=== PATIENT | male | born 1980 | race Two or more races ===

== ENCOUNTER 2017-03-16 14:22 | Emergency (ER) | payer OTHER ==
[~2017-03-16] VITALS: Ht 165.1 cm; Wt 83.9 kg
--- NOTE | 2017-03-16 14:24 | NUR ---
PT TO ER BED 11. POSTERIOR HEAD LAC POST FALL. PT DENIES KO. NO N/V R HAND ABRASION. AWAITNG MD HAMMOND.
[2017-03-16] MEDS ORDERED: LIDOCAINE 2%-EPI 1:100,000 30 ML VIAL IJ STA (14:31)
--- NOTE | 2017-03-16 14:33 | NUR ---
DR TALAVERA AT BEDSIDE FOR EVAL.
--- NOTE | 2017-03-16 14:58 | NUR ---
PT TO RADIOLOGY FOR HEAD CT SCAN VIA [facility].
[2017-03-16] MEDS ORDERED: TDAP [DIPH/PERTUSSIS/TET] 0.5 ML VIAL IM ONE ×2 (15:00→15:11)
[2017-03-16] MEDS ORDERED: LIDOCAINE 1%-EPI 1:100,000 50 ML VIAL IJ ONE (15:11)
[2017-03-16] MEDS ORDERED: BACI/NEOM/POLY B OINT PKT 1 UDPKT PACKET TP ONE (16:00)
--- NOTE | 2017-03-16 16:05 | NUR ---
WOUND CARE PROVIDED. PT D/C HOME IN STABLE CONDITION.
[2017-03-16 16:07] VITALS: BP 142/87
== END 2017-03-16 16:08 | disposition home or self-care (01) ==
LOC: ER 14:25
DX: S01.01XA Laceration without foreign body of scalp, initial encounter (principal); W17.89XA Other fall from one level to another, initial encounter; Y93.89 Activity, other specified; Y92.89 Other specified places as the place of occurrence of the external cause; Y99.8 Other external cause status
CPT/HCPCS: 12002; 70450; 90471; 90715; 99284; A4606; A6402 ×2; J3490; Z7610